=== PATIENT | male | born 1995 | race Caucasian/White ===

== ENCOUNTER 2017-08-13 08:39 | Day surgery (SDC) | payer BC ==
[~2017-08-13 08:39] MED LIST: EPHEDrine SULFATE 50 MG/5 ML SYG
[2017-08-13] MEDS ORDERED: MIDAZOLAM 1 MG/ML 2 ML INJ (12:21)
[2017-08-13] MEDS ORDERED: PROPOFOL 20 ML (12:21)
[2017-08-13] MEDS ORDERED: ROCURONIUM 50 MG INJ (12:21)
[2017-08-13] MEDS ORDERED: METOCLOPRAMIDE 10 MG INJ (12:48)
[2017-08-13] MEDS ORDERED: KETOROLAC 30 MG INJ (12:48)
[2017-08-13] MEDS ORDERED: DEXAMETHASONE 4 MG/ML 1 ML INJ (12:48)
[2017-08-13] MEDS ORDERED: ONDANSETRON 4 MG INJ (12:48)
[2017-08-13] MEDS ORDERED: SUGAMMADEX SODIUM 200 MG/2 ML VIAL IV (12:48)
[2017-08-13] MEDS ORDERED: NEOMYC/POLYMYX/BACIT 3.5GM OPH OINT (12:55)
[2017-08-13] MEDS: NEOMYC/POLYMYX/BACIT 30 GM OINT (13:09)
[2017-08-13] MEDS: COCAINE 4% 4 ML TOP (13:09)
[2017-08-13] MEDS: LIDOCAINE 1%/EPI (1:100,000) (MDV) 20 ML INJ (13:10)
[2017-08-13] MEDS ORDERED: NEOMYC/POLYMYX/BACIT 30 GM OINT (13:19)
[2017-08-13] MEDS ORDERED: METOCLOPRAMIDE 10 MG INJ IV (13:30)
[2017-08-13] MEDS ORDERED: EPHEDrine SULFATE 50 MG/5 ML SYG IV (13:30)
[2017-08-13] MEDS ORDERED: FENTAnyl 50 MCG/ML VIAL IV ×3 (13:30)
[2017-08-13] MEDS ORDERED: DIPHENHYDRAMINE 50 MG INJ IV (13:30)
[2017-08-13] MEDS ORDERED: OXYCODONE/ACETAMINOPHEN (5/325) TAB PO ×2 (13:30)
[2017-08-13] MEDS ORDERED: HYDROmorphONE (0.2 MG/ML) 10ML SYG IV ×3 (13:30)
[2017-08-13] MEDS ORDERED: ONDANSETRON 4 MG INJ IV (13:30)
[2017-08-13] MEDS ORDERED: MEPERIDINE 25 MG INJ IV (13:30)
== END 2017-08-13 15:40 | disposition home or self-care (01) ==
LOC: SDS 08:39
DX: J34.2 Deviated nasal septum (principal); J34.3 Hypertrophy of nasal turbinates; Z87.891 Personal history of nicotine dependence
CPT/HCPCS: 30140; 88300